=== PATIENT | male | born 1960 | race Caucasian/White ===

== ENCOUNTER 2020-02-27 11:07 | Day surgery (SDC) | payer OTHER ==
[2020-02-25 15:31] VITALS: BMI 31.8
--- NOTE | 2020-02-26 18:05 | HP ---
HISTORY AND PHYSICAL DATE OF SURGERY: 02/27/2020 Zac Moran is a 60-year-old patient seen with symptomatic right carpal tunnel syndrome. We discussed options. He elected to proceed with decompression of the right median nerve. Consent regarding the procedure was obtained. PAST MEDICAL HISTORY: Noncontributory. PAST SURGICAL HISTORY: Appendectomy, knee arthroscopy. DAILY MEDICATIONS: Motrin. ALLERGIES: NONE. SOCIAL HISTORY: Denies tobacco use. PHYSICAL EVALUATION OF THE RIGHT HAND: He has a positive carpal compression, positive carpal Tinel's causing numbness and tingling throughout the median nerve distribution. There is decreased sensation along the median nerve distribution. He has good perfusion. There is a good radial pulse present. RADIOGRAPHS: Radiographs of the right wrist reveal some moderate osteoarthritis. IMPRESSION: 1. Right carpal tunnel syndrome. 2. Right wrist osteoarthritis. 3. Hypertension. 4. Hyperlipidemia. PLAN: Decompression, right median nerve. MMODL / IJN: [id number] /
[~2020-02-27 11:07] MED LIST: DEXAMETHASONE SOD PHOSPHATE 10 MG/ML 1 ML VIAL IV ONE; HYDROmorphone 0.5 MG/0.5 ML SYRINGE IVP PRN; LACTATED RINGERS 1,000 ML IV SCH; LIDOCAINE 1% (10MG/ML) FOR IV START INTRADERMA PRN; ONDANSETRON 4 MG/2 ML VIAL IVP ONE
[2020-02-27 11:33] VITALS: TEMP 98.3
[2020-02-27 11:50] LABS: ALT 47 U/L (4-49); AST 36 U/L (17-59); African American GFR (CKD) >90 (>60 ml/min/1.73 sqM); Albumin 4.7 g/dL (3.5-5.0); Alkaline Phosphatase 86 U/L (38-126); Anion Gap 9 mmol/L; Blood Urea Nitrogen 19 mg/dL (9-20); Carbon Dioxide 28 mmol/L (22-30); Chloride 102 mmol/L (98-107); Glucose 122 mg/dL (74-99); Non-African American GFR(CKD) >90 (>60 ml/min/1.73 sqM); Sodium 139 mmol/L (137-145); Total Bilirubin 0.8 mg/dL (0.2-1.3); Total Protein 7.7 g/dL (6.3-8.2)
[2020-02-27] MEDS ORDERED: PROPOFOL 10 MG/ML 20 ML VIAL IV ONE (11:50)
[2020-02-27] MEDS ORDERED: LIDOCAINE 1% INJ 10MG/ML (20 ML MDV) ONE (11:50)
[2020-02-27] MEDS ORDERED: MIDAZOLAM 2 MG/2 ML VIAL ONE (11:50)
[2020-02-27] MEDS ORDERED: fentaNYL (PF) 50 MCG/ML 2 ML AMP ONE (11:50)
[2020-02-27] MEDS ORDERED: BUPIVACAINE (PF) 0.25% 30 ML VIAL SQ ONE (12:04)
[2020-02-27 12:07] LABS: Basophils % (A) 0 %; Eosinophils # (A) 0.2 k/uL (0-0.7); Eosinophils % (A) 4 %; HCT 43.6 % (39.0-53.0); HGB 14.9 gm/dL (13.0-17.5); Lymphocytes # (A) 1.6 k/uL (1.0-4.8); Lymphocytes % (A) 27 %; MCH 31.9 pg (25.0-35.0); MCHC 34.3 g/dL (31.0-37.0); Mean Platelet Volume 6.8; Monocytes # (A) 0.4 k/uL (0-1.0); Monocytes % (A) 6 %; Neutrophils # (A) 3.5 k/uL (1.3-7.7); Neutrophils % (A) 60 %; Platelet Count 208 k/uL (150-450); RBC 4.69 m/uL (4.30-5.90); RDW 12.7 % (11.5-15.5); WBC 5.8 k/uL (3.8-10.6)
--- NOTE | 2020-02-27 12:22 | P.OP ---
Date of Procedure: 02/27/20 Preoperative Diagnosis: Right carpal tunnel syndrome Postoperative Diagnosis: Right carpal tunnel syndrome Procedure(s) Performed: Decompression right median nerve Anesthesia: MAC, local Surgeon: Navi Jorge Estimated Blood Loss (ml): 0 Pathology: none sent Condition: stable Disposition: PACU Indications for Procedure: 60-year-old patient seen with symptomatic right carpal tunnel syndrome. After treatment options were discussed, he elected to proceed with decompression right median nerve. Operative Findings: See description of procedure Description of Procedure: Patient was taken to the operative suite. The patient received preoperative IV antibiotics. The patient underwent IV sedation by the department of anesthesia. A well-padded tourniquet placed proximal right upper extremity. The right upper extremity was prepped and draped in the normal sterile orthopedic fashion. The proposed incision site was infiltrated with 10 mL quarter percent plain Marcaine. When sufficient local analgesia was noted the extremity was elevated and tourniquet insufflated to 250. I now made an incision beginning at the distal volar wrist crease extending distally approximately 3 cm in line with the fourth metacarpal sharply through skin. I dissected down through the subcutaneous soft tissues to the palmar fascia and down to the transverse carpal ligament. I now incised the transverse carpal ligament. I completed the release proximally and distally with blunt Metzenbaums. There was good complete release of the transverse carpal ligament and good decompression of the nerve. There was good hemostasis. The wound was irrigated. The skin margins were proximal nylon suture. We applied sterile dressings. The tourniquet was released with immediate capillary refill to all digits noted. Sterile dressings were applied. The patient was now awakened, transferred to a bed and recovery stable condition.
[2020-02-27 12:24] VITALS: RESP 16
[2020-02-27 12:55] VITALS: BP 148/83; PULSE 73
== END 2020-02-27 13:04 | disposition home or self-care (01) ==
LOC: OR 11:07
PROVIDERS: ATTEND Orthopaedic Surgery
DX: G56.01 Carpal tunnel syndrome, right upper limb (principal); M19.031 Primary osteoarthritis, right wrist; I10 Essential (primary) hypertension; E78.5 Hyperlipidemia, unspecified; K08.89 Other specified disorders of teeth and supporting structures; Z88.1 Allergy status to other antibiotic agents; Z90.49 Acquired absence of other specified parts of digestive tract; Z98.890 Other specified postprocedural states; Z79.1 Long term (current) use of non-steroidal anti-inflammatories (NSAID); Z86.69 Personal history of other diseases of the nervous system and sense organs
CPT/HCPCS: 80053; 85025; 64721; J2250; J1100; J0690; J2405; J2001; J3010; J2704